=== PATIENT | female | born 1990 | race Caucasian/White ===

== ENCOUNTER 2018-11-25 11:00 | Emergency (ER) | payer OTHER ==
[2018-11-25] MEDS ORDERED: ACETAMINOPHEN EXTRA STRENGTH 500 MG TABLET ONE (11:52)
== END 2018-11-25 13:02 | disposition home or self-care (01) ==
LOC: EDH 11:00
DX: S82.892A Other fracture of left lower leg, initial encounter for closed fracture (principal); W18.39XA Other fall on same level, initial encounter; Y93.01 Activity, walking, marching and hiking; Y92.89 Other specified places as the place of occurrence of the external cause; Y99.8 Other external cause status
CPT/HCPCS: 29515; 73610